=== PATIENT | female | born 2000 | race Caucasian/White ===

== ENCOUNTER 2020-01-20 16:34 | Emergency (ER) | payer OTHER ==
--- NOTE | 2020-01-20 19:02 | RAD REPORT ---
EXAM DESCRIPTION: US - Transvaginal Study Probe - 01/20/2020 6:43 pm CLINICAL HISTORY: ABD PAIN COMPARISON: No comparisons TECHNIQUE: Endovaginal sonography was performed. FINDINGS: Uterine size is normal. No myometrial mass. No suspicious mass, polyp or hematoma within t he endometrial cavity. No abnormal blood or fluid collection in the cul de sac. Right ovary is identi fied and normal in size. Normal for age small follicles are seen in the right ovary. No dominant andriy d or cystic right ovarian or right adnexal abnormality. Bowel obscures the left ovary. No left adnexal mass was identifiable. IMPRESSION: Uterus, right ovary and right adnexa show no suspicious findings. Nonvisualization of the left ovary due to prominent bowel. No left adnexal mass identified.
--- NOTE | 2020-01-20 19:06 | EDPHYS ---
Physician Documentation [facility] Name: Anum Barnett Age: 19 yrs Sex: Female : 2000 Arrival Date: 01/20/2020 Time: 16:36 Bed Waiting Private MD: ROSEANNE Physician Sam Cuadra HPI: 01/19 19:12 This 19 yrs old Female presents to ER via Ambulatory with complaints of Side kb Pain, Back Pain. 19:13 The patient complains of pain in the left flank and right flank. The pain radiates to kb the abdomen. Onset: The symptoms/episode began/occurred 2 week(s) ago. Modifying factors: The symptoms are alleviated by nothing. the symptoms are aggravated by nothing. Associated signs and symptoms: The patient has no apparent associated signs or symptoms. Severity of pain: At its worst the pain was moderate in the emergency department the pain is unchanged. The patient has not experienced similar symptoms in the past. The patient has been recently seen by a physician:. Pt reports she has had bilateral flank and abd pain for 2 weeks. Went to [place] when it first began, blood work was normal and CT showed ruptured ovarian cyst. Pain returned so she went to another ER, CT and labs were normal. Pain continues so she came to have it evaluated here. . SUIT MAKER: 17:11 LMP 01/19/2020 aa5 Historical: - Allergies: 17:02 No Known Allergies; aa5 - Home Meds: 17:02 Buspirone Oral [Active]; aa5 - PMHx: 17:02 Anxiety; aa5 - PSHx: 17:02 None; aa5 - Immunization history:: Adult Immunizations up to date. - Social history:: Smoking status: Patient denies any tobacco usage or history of. ROS: 19:12 Constitutional: Negative for fever, chills, and weight loss, Cardiovascular: Negative kb for chest pain, palpitations, and edema, Respiratory: Negative for shortness of breath, cough, wheezing, and pleuritic chest pain, : Negative for injury, bleeding, discharge, and swelling, MS/Extremity: Negative for injury and deformity, Skin: Negative for injury, rash, and discoloration, Neuro: Negative for headache, weakness, numbness, tingling, and seizure. 19:12 Abdomen/GI: Positive for abdominal pain, of the suprapubic area, Negative for nausea, vomiting, and diarrhea. 19:12 Back: Positive for flank pain, bilaterally. Exam: 19:12 Constitutional: This is a well developed, well nourished patient who is awake, alert, kb and in no acute distress. Head/Face: Normocephalic, atraumatic. Chest/axilla: Normal chest wall appearance and motion. Nontender with no deformity. No lesions are appreciated. Cardiovascular: Regular rate and rhythm with a normal S1 and S2. No gallops, murmurs, or rubs. Normal PMI, no JVD. No pulse deficits. Respiratory: Lungs have equal breath sounds bilaterally, clear to auscultation and percussion. No rales, rhonchi or wheezes noted. No increased work of breathing, no retractions or nasal flaring. Abdomen/GI: Soft, non-tender, with normal bowel sounds. No distension or tympany. No guarding or rebound. No evidence of tenderness throughout. Back: No spinal tenderness. No costovertebral tenderness. Full range of motion. Skin: Warm, dry with normal turgor. Normal color with no rashes, no lesions, and no evidence of cellulitis. MS/ Extremity: Pulses equal, no cyanosis. Neurovascular intact. Full, normal range of motion. Neuro: Awake and alert, GCS 15, oriented to person, place, time, and situation. Cranial nerves II-XII grossly intact. Motor strength 5/5 in all extremities. Sensory grossly intact. Cerebellar exam normal. Normal gait. Vital Signs: 17:02 BP 109 / 95; Pulse 80; Resp 16 S; Temp 98.0(TE); Pulse Ox 100% on R/A; aa5 MDM: 17:05 Patient medically screened. kb 19:01 Data reviewed: vital signs, nurses notes. Data interpreted: Pulse oximetry: on room air kb is 100 %. Interpretation: normal. Counseling: I had a detailed discussion with the patient and/or guardian regarding: the historical points, exam findings, and any diagnostic results supporting the discharge/admit diagnosis, lab results, radiology results, the need for outpatient follow up, an OB/Gyne specialist, to return to the emergency department if symptoms worsen or persist or if there are any questions or concerns that arise at home. 01/19 17:34 Order name: Urine Dipstick--Ancillary (enter results) 01/19 17:34 Order name: Urine --Ancillary (enter results) 01/19 17:06 Order name: Urine Test (obtain specimen) 01/19 17:06 Order name: Urine Dipstick-Ancillary (obtain specimen) 01/19 17:06 Order name: US Transvaginal Study (Probe); Complete Time: 19:04 kb Administered Medications: No medications were administered Disposition: 01/20 05:29 Co-signature as Attending Physician, Sam Cuadra MD I agree with the assessment and mal plan of care. Disposition: 01/20/20 19:06 Discharged to Home. Impression: Abdominal and pelvic pain. - Condition is Stable. - Discharge Instructions: Pelvic Pain, Female, [id number]. - Prescriptions for Ibuprofen 600 mg Oral Tablet - take 1 tablet by ORAL route every 6 hours As needed take with food; 30 tablet. - Medication Reconciliation Form, Thank You Letter, Antibiotic Education, Prescription Opioid Use form. - Follow up: Emergency Department; When: As needed; Reason: Worsening of condition. Follow up: Private Physician; When: 2 - 3 days; Reason: Recheck today's complaints, Continuance of care, Re-evaluation by your physician. Signatures: Dispatcher [employer] EDDalia Alvarenga, STRADDLE BUG OPERATOR-C STRADDLE BUG OPERATOR-Ckb Sam Cuadra MD MD cha Calderon, Audri, RN RN aa5 Corrections: (The following items were deleted from the chart) 01/19 19:17 19:06 01/20/2020 19:06 Discharged to Home. Impression: Abdominal and pelvic pain. aa5 Condition is Stable. Forms are Medication Reconciliation Form, Thank You Letter, Antibiotic Education, Prescription Opioid Use. Follow up: Emergency Department; When: As needed; Reason: Worsening of condition. Follow up: Private Physician; When: 2 - 3 days; Reason: Recheck today's complaints, Continuance of care, Re-evaluation by your physician. kb
--- NOTE | 2020-01-20 19:06 | ER ---
Nurse's Notes [facility] Name: Anum Barnett Age: 19 yrs Sex: Female : 2000 Arrival Date: 01/20/2020 Time: 16:36 Bed Waiting Private MD: Diagnosis: Abdominal and pelvic pain Presentation: 01/19 17:02 Chief complaint: Patient states: "I had a ruptured ovarian cyst a couple of weeks ago aa5 and I was seen here but I haven't been able to follow up with an Fence Repairman". Pt c/o soreness to xiao flanks. Pt states "my period was heavy this time and I had a clot that came out". Coronavirus screen: Client denies travel out of the [place] in the last 14 days. At this time, the client does not indicate any symptoms associated with coronavirus-19. Ebola Screen: Patient negative for fever greater than or equal to 101.5 degrees Fahrenheit, and additional compatible Ebola Virus Disease symptoms. Initial Sepsis Screen: Does the patient meet any 2 criteria? No. Patient's initial sepsis screen is negative. Does the patient have a suspected source of infection? No. Patient's initial sepsis screen is negative. Risk Assessment: Do you want to hurt yourself or someone else? Patient reports no desire to harm self or others. Onset of symptoms was January 2020. 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 - Social history:: Smoking status: Patient denies any tobacco usage or history of. Screenin:15 Abuse screen: Denies threats or abuse. Nutritional screening: No deficits noted. aa5 Tuberculosis screening: No symptoms or risk factors identified. Fall Risk None identified. Assessment: 17:15 General: Appears comfortable, Behavior is calm, cooperative. Pain: Complains of pain in aa5 abdomen and right flank and left flank Pain currently is 3 out of 10 on a pain scale. Quality of pain is described as sore Pain began 2 weeks ago. Neuro: Level of Consciousness is awake, alert, obeys commands, Oriented to person, place, time, situation. Cardiovascular: Heart tones S1 S2 present Rhythm is regular. Respiratory: Airway is patent Respiratory effort is even, unlabored, Respiratory pattern is regular, symmetrical. GI: Abdomen is flat, Bowel sounds present X 4 quads. Abd is soft and non tender X 4 quads. : Denies burning with urination, urinary frequency, urgency. EENT: No signs and/or symptoms were reported regarding the EENT system. Derm: Skin is pink, warm \\T\\ dry. Musculoskeletal: Range of motion: intact in all extremities. 19:00 Reassessment: INCREMENT MANAGER in triage with pt updating pt about urine and US results and POC to aa5 d/c home. Pt states she had [address] scans over the last 2 weeks in other ERs without significant findings. . 19:15 Reassessment: Patient is alert, oriented x 3, equal unlabored respirations, skin aa5 warm/dry/pink. Vital Signs: 17:02 BP 109 / 95; Pulse 80; Resp 16 S; Temp 98.0(TE); Pulse Ox 100% on R/A; aa5 ED Course: 16:36 Patient arrived in ED. ds1 17:01 Arm band placed on. aa5 17:01 Patient has correct armband on for positive identification. aa5 17:04 Triage completed. aa5 17:05 Dalia Medeiros FNP-C is [facility]. kb 17:05 Sam Cuadra MD is Attending Physician. kb 18:44 US Transvaginal Study (Probe) In Process Unspecified. EDMS 19:15 No provider procedures requiring assistance completed. Patient did not have IV access aa5 during this emergency room visit. Administered Medications: No medications were administered Outcome: 19:06 Discharge ordered by . kb 19:15 Discharged to home ambulatory. aa5 19:15 Condition: stable 19:15 Discharge instructions given to patient, Instructed on discharge instructions, follow up and referral plans. medication usage, Demonstrated understanding of instructions, follow-up care, medications, Prescriptions given X 1. 19:17 Patient left the ED. aa5 Signatures: Dispatcher [employer] EDSC Dalia Medeiros FNP-C FNP-Ckb Sanford, Demi ds1 Brenda Haley RN RN aa5 Corrections: (The following items were deleted from the chart) 19:25 19:05 Reassessment: INCREMENT MANAGER in triage with pt updating pt about urine and US results and POC aa5 to d/c home. Pt states she had [address] scans over the last 2 weeks in other ERs without significant findings. . aa5
[2020-01-20 20:11] VITALS: BP 109/95; TEMP 98; O2SAT 100
[2020-01-20 20:49] LABS: Urine Blood NEGATIVE (NEG); Urine Glucose NEGATIVE (NEG); Urine Protein NEGATIVE (NEG); Urine Specific Gravity 1.015 (1.005-1.030)
== END 2020-01-20 19:17 | disposition home or self-care (01) ==
LOC: ER 16:34
DX: R10.2 Pelvic and perineal pain (principal); F41.9 Anxiety disorder, unspecified
CPT/HCPCS: 76830; 81003; 81025; 99283

== ENCOUNTER 2020-01-22 17:25 | Emergency (ER) | payer OTHER ==
--- OUTSIDE RECORDS SUMMARY | 2020-01-22 17:28 | XMS REPORT | Continuity of Care Document ---
:2000 Author Organization [facility] t Address [address] [place] [address] Care Team Providers Name Role Phone Unavailable Unavailable Unavailable Payers Payer Name Policy Type Policy Number Effective Date Expiration Date S ource Problems This patient has no known problems. Allergies, Adverse Reactions, Alerts Allergy Allergy Status Severity Reaction(s) Onset Inactive Treating Comm ents Source Name Type Date Date Clinician No Known DA Active U 2019-03 [facility] Allergie 03-13 [facility] Medications This patient has no known medications. Procedures This patient has no known procedures. Results Test Description Test Time Test Comments Results Result [facility] e Comments - CTA CHEST FOR PE 2020-01-12 15:36:00 [facility] : 2000 Sex: F Name: OLE CAMEJO Juan ED : 2000 Age/S: 19 / F [address] Unit #: [id number] Loc: [place] [address] Phys: Lm Monsivais MD Acct: [id number] Dis Date: Status: REG ER PHONE #: Exam Date: 01/12/2020 9113 FAX #: Reason: cp/sob elevated ddimer EXAMS: CPT CODE: [id number] [place] 75358 - CTA CHEST FOR PE CLINICAL HISTORY: Chest pain with shortness of breath. Elevated d-dimer. COMPARISON: None TECHNIQUE: CT angiography of the chest was performed both before and after intravenous contrast administration. The study was performed using angiographic technique with maximum intensity projection reconstruction images. Patient was given 80 ml of Isovue through intravenous route. This CT exam was performed using one or more of the following dose reduction techniques: Automated exposure control; Adjustment of the mA and/or kV according to patient size; Use of iterative reconstruction technique. FINDINGS: Lungs are slightly hyperexpanded without pneumothorax, effusion or focal alveolar consolidation. Heart size is normal. There is no pericardial effusion. No significant mediastinal, hilar or axillary adenopathy. Residual thymus is noted within the anterior mediastinum. There is no evidence of pulmonary embolus. The thoracic aorta appears normal in caliber throughout its course. No definite acute bony abnormality. Visualized portions of the upper abdomen are grossly unremarkable. IMPRESSION: No evidence of pulmonary embolus. Mildly hyperexpanded lungs without consolidation or effusion. Other findings described above. at 1536 Reported and signed by: Cherise Elizabeth MD CC: Lm Monsivais MD Technologist:Yun [facility] CT(R) RT CTDI: 4.02 DLP: 159.79 Trnscb Date/Time: 01/12/2020 (1536) t.[email or web address] Orig Print D/T: S: 01/12/2020 (1539) PAGE 1 Signed Report DRUGS OF ABUSE SCREEN 2020-01-12 13:54:00 Test Item Value Reference Range Interpretation Comme nts UR COCAINE (test code = COCAU) NEGATIVE ng/ml NEGATIVE UR CANNABINOIDS (test code = NEGATIVE ng/ml NEGATIVE CANU) UR AMPHETAMINE (test code = NEGATIVE ng/dl NEGATIVE AMPHU) UR BARBITURATE (test code = NEGATIVE ng/ml NEGATIVE BARBU) UR BENZODIAZEPINE (test code = NEGATIVE ng/ml NEGATIVE BENZU) UR OPIATES QUAL (test code = NEGATIVE ng/ml NEGATIVE OPIAQLU) UR PHENCYCLIDINE (PCP) (test NEGATIVE ng/ml NEGATIVE THE URINE SPECIMEN WAS code = PHENCU) TESTED AT THE LISTED CUTOFFS DRUG CLASS INITIAL TEST LEVEL AMPHETAMI MIKE 1000 NG/MLBARBI TURATES 200 NG/MLBE NZODIAZEPINES 200 NG/M LCOCAINE METABOLITE 300 NG/MLMARIJUANA METABOLITE 50 NG/MLOPIATES 300 NG/MLPHEN CYCLIDINE 25 NG/ML UR HCG [id number] 13:46:00 Test Item Value Reference Range Interpretation Comments UR HCG QUAL (test code = HCGQLU) NEGATIVE NEGATIVE B-TYPE NATRIURETIC [id number] 13:15:00 Test Item Value Reference Range Interpretation Comments B-TYPE NATRIURETIC PEPTIDE (test 10 PG/ML 13-100 L code = BNP) D-DIMER [id number] 13:11:00 Test Item Value Reference Range Interpretation Comments D-DIMER QUANT 0.68 mg/L FEU <0.59 H "D-DIMER CUT OFF OF 0.50 (test code = mg/L (FEU) IS U SEFUL TO DDIMER) EXCLUDE DXOF DVT/PEExpected value(RI) is less than 0. 59mg/L (FEU) for cliff lhealthy subjects."Miquel montejo note: Results of D-di celestine assays should a lways beinterpreted i n conjunction wit h the patient's medicalhistory, clinical presentation/pr obability and otherfindin gs. LAB ANTICOAGULANT QUERY NO- XR CHEST 1 [id number] 13:05:00 [facility] 2000 Sex: F FAX: Koza,Lm M MD [phone] [place]: St: PRE Name: OLE CAMEJO [place] FSED : 2000 Age/S: 19/F [address] Unit #: [id number] Loc: [place] [address] Phys: Lm Monsivais MD Acct: [id number] Dis Date:Status: PRE ER PHONE #: Exam Date: 01/12/2020 3776 FAX #: Reason: chest pain EXAMS: CPT CODE: [id number] XR CHEST 1 V 06145 Site ID: [id number] HISTORY: Chest pain FINDINGS: The lungs are clear and normally expanded. The heart and pulmonary vasculature is normal. Osseous structures are unremarkable. IMPRESSION: Negative chest X-ray. at 1303 Reported and signed by: ORQUIDEA MALDONADO M.D. CC: Lm Monsivais MD Technologist: Dhara Cummings CT(R)RT Trnscrd Date/Time/By: 01/12/2020 (2712) : By: [email or web address] Orig Print D/T: S: 01/12/2020 (7118) PAGE 1 Signed ReportBASIC METABOLIC [id number] 12:56:00 Test Item Value Reference Range Interpretation Comments SODIUM (test code = 137 mmol/L 136-145 N NA) POTASSIUM (test code = 3.5 mmol/L 3.5-5.1 N K) CHLORIDE (test code = 103 mmol/L 98-107 N CL) CARBON DIOXIDE (test 23 mmol/L 21-32 N code = CO2) GLUCOSE (test code = 91 mg/dL 70-100 N GLU) BLOOD UREA NITROGEN 7 mg/dL 7-18 N (test code = BUN) GLOMERULAR FILTRATION > 60.00 >=60 Report ing units: RATE (test code = GFR) mL/mi n/1.73m\\S\\2 (Modified MDRD formula)REFEREN CE RANGE: > or = 6 0 ml/min/1.73M2IF PATIENT IS -EB N, MULTIPLY REPORT ED RESULT BY1.21. CREATININE (test code 0.59 mg/dl 0.55-1.02 N = CREAT) CALCIUM (test code = 9.5 mg/dL 8.5-10.1 N CA) LIVER [id number] 12:56:00 Test Item Value Reference Range Interpretation Comments TOTAL PROTEIN (test code = PROT) 8.1 g/dl 6.4-8.2 N ALBUMIN (test code = ALB) 4.5 g/dl 3.4-5.0 N BILIRUBIN TOTAL (test code = BILT) 0.4 mg/dL 0.2-1.0 N BILIRUBIN DIRECT (test code = 0.12 mg/dl 0.0-0.2 N BILD) SGOT/AST (test code = AST) 12 U/L 15-37 L SGPT/ALT (test code = ALT) 3 U/L 12-78 L ALKALINE PHOSPHATASE TOTAL (test 65 U/L 45-117 N code = ALKP) [id number] 12:56:00 Test Item Value Reference Range Interpretation Comments LIPASE (test code = LIP) 92 U/L 73-393 N [id number] 12:56:00 Test Item Value Reference Range Interpretation Comments TROPONIN-I (test <0.017 ng/ml 0.00-0.045 N GUIDELINES: 0.08 - 0.09 code = TROPI) Indeterminate0 .10 Risk Stratifica tion Limit: Suggest sequential te sting0.60 - 1.50 AMI cut off: Myocardial Inju ry by WHO criteria BASIC METABOLIC [id number] 12:53:00 Test Item Value Reference Range Interpretation Comments SODIUM (test code = 137 mmol/L 136-145 N NA) POTASSIUM (test code = 3.5 mmol/L 3.5-5.1 N K) CHLORIDE (test code = 103 mmol/L 98-107 N CL) CARBON DIOXIDE (test 23 mmol/L 21-32 N code = CO2) GLUCOSE (test code = 91 mg/dL 70-100 N GLU) BLOOD UREA NITROGEN 7 mg/dL 7-18 N (test code = BUN) GLOMERULAR FILTRATION > 60.00 >=60 Report ing units: RATE (test code = GFR) mL/mi n/1.73m\\S\\2 (Modified MDRD formula)REFEREN CE RANGE: > or = 6 0 ml/min/1.73M2IF PATIENT IS -EB N, MULTIPLY REPORT ED RESULT BY1.21. CREATININE (test code 0.59 mg/dl 0.55-1.02 N = CREAT) CALCIUM (test code = 9.5 mg/dL 8.5-10.1 N CA) LIVER [id number] 12:53:00 Test Item Value Reference Range Interpretation Comments TOTAL PROTEIN (test code = PROT) 8.1 g/dl 6.4-8.2 N ALBUMIN (test code = ALB) 4.5 g/dl 3.4-5.0 N BILIRUBIN TOTAL (test code = BILT) 0.4 mg/dL 0.2-1.0 N BILIRUBIN DIRECT (test code = BILD) mg/dl 0.0-0.2 SGOT/AST (test code = AST) 12 U/L 15-37 L SGPT/ALT (test code = ALT) 3 U/L 12-78 L ALKALINE PHOSPHATASE TOTAL (test 65 U/L 45-117 N code = ALKP) [id number] 12:53:00 Test Item Value Reference Range Interpretation Comments LIPASE (test code = LIP) U/L 73-393 [id number] 12:53:00 Test Item Value Reference Range Interpretation Comments TROPONIN-I (test code = TROPI) ng/ml 0.00-0.045 BASIC METABOLIC [id number] 12:50:00 Test Item Value Reference Range Interpretation Comments SODIUM (test code = 137 mmol/L 136-145 N NA) POTASSIUM (test code = 3.5 mmol/L 3.5-5.1 N K) CHLORIDE (test code = 103 mmol/L 98-107 N CL) CARBON DIOXIDE (test 23 mmol/L 21-32 N code = CO2) GLUCOSE (test code = 91 mg/dL 70-100 N GLU) BLOOD UREA NITROGEN 7 mg/dL 7-18 N (test code = BUN) GLOMERULAR FILTRATION > 60.00 >=60 Report ing units: RATE (test code = GFR) mL/mi n/1.73m\\S\\2 (Modified MDRD formula)REFEREN CE RANGE: > or = 6 0 ml/min/1.73M2IF PATIENT IS -EB N, MULTIPLY REPORT ED RESULT BY1.21. CREATININE (test code 0.59 mg/dl 0.55-1.02 N = CREAT) CALCIUM (test code = mg/dL 8.5-10.1 CA) LIVER [id number] 12:50:00 Test Item Value Reference Range Interpretation Comments TOTAL PROTEIN (test code = PROT) g/dl 6.4-8.2 ALBUMIN (test code = ALB) g/dl 3.4-5.0 BILIRUBIN TOTAL (test code = BILT) mg/dL 0.2-1.0 BILIRUBIN DIRECT (test code = BILD) mg/dl 0.0-0.2 SGOT/AST (test code = AST) U/L 15-37 SGPT/ALT (test code = ALT) U/L 12-78 ALKALINE PHOSPHATASE TOTAL (test code U/L 45-117 = ALKP) [id number] 12:50:00 Test Item Value Reference Range Interpretation Comments LIPASE (test code = LIP) U/L 73-393 [id number] 12:50:00 Test Item Value Reference Range Interpretation Comments TROPONIN-I (test code = TROPI) ng/ml 0.00-0.045 CBC W/AUTO [id number] 12:44:00 Test Item Value Reference Range Interpretation Comments WHITE BLOOD CELL (test code = 8.1 X10(3) 4.5-11.0 N WBC) RED BLOOD CELL (test code = 4.32 X10(6) 4.2-5.4 N RBC) HEMOGLOBIN (test code = HGB) 13.1 g/dL 12.5-16.0 N HEMATOCRIT (test code = HCT) 40.6 % 37.0-47.0 N MEAN CELL VOLUME (test code = 94.0 fL 78-100 N MCV) MEAN CELL HGB (test code = MCH) 30.3 pg 26.0-34.0 N MEAN CELL HGB CONCETRATION 32.3 g/dl 30.0-37.0 N (test code = MCHC) RED CELL DISTRIBUTION WIDTH 11.9 % 11.5-14.5 N (test code = RDW) PLATELET COUNT (test code = 244 X10(3) 150-350 N PLT) MEAN PLATELET VOLUME (test code 10.6 fl 8.7-11.4 N = MPV) NEUTROPHIL % (test code = NT%) 60.5 % 36.0-66.0 N IMMATURE GRANULOCYTE % (test 0.1 % 0.0-2.0 N code = IG%) LYMPHOCYTE % (test code = LY%) 31.6 % 16-50 N MONOCYTE % (test code = MO%) 6.8 % 0.0-13.0 N EOSINOPHIL % (test code = EO%) 0.5 % 0.0-4.5 N BASOPHIL % (test code = BA%) 0.5 % 0.0-1.5 N NEUTROPHIL # (test code = NT#) 4.9 X10(3) 1.7-7.7 N IMMATURE GRANULOCYTE # (test 0.01 X10(3)uL 0.00-0.03 N code = IG#) LYMPHOCYTE # (test code = LY#) 2.6 X10(3) 1.0-4.8 N MONOCYTE # (test code = MO#) 0.6 X10(3) 0.0-0.89 N EOSINOPHIL # (test code = EO#) 0.0 X10(3) 0.0-0.6 N BASOPHIL # (test code = BA#) 0.0 X10(3) 0.0-0.2 N RBC MORPHOLOGY REQUIRED (test NO NORMAL code = RBCM)
[2020-01-22] MEDS ORDERED: FAMOTIDINE 20 MG/2 ML VIAL IV ONE (19:18)
[2020-01-22 19:20] LABS: Absolute Lymphocytes (CBC) 3.2 K/uL (0.7-4.9); Basophils % 0.5 % (0-1.3); Hematocrit 37.7 % (36.0-45.0); Lymphocytes % 38.1 % (15.3-44.8); MPV 9.1 fL (7.6-11.3); RBC Red Blood Cell Count 4.12 M/uL (3.86-4.86)
[2020-01-22 19:37] LABS: ALT/SGPT 15 U/L (12-78); AST/SGOT 9 U/L (15-37); Albumin 4.4 g/dL (3.4-5.0); Alkaline Phosphatase 74 U/L (45-117); BUN Blood Urea Nitrogen 9 mg/dL (7-18); Bicarbonate 28 mmol/L (21-32); Bilirubin Direct < 0.1 mg/dL (0-0.2); Bilirubin Total 0.3 mg/dL (0.2-1.0); Glucose Level 77 mg/dL (74-106); Lipase 116 U/L (73-393); Potassium 3.9 mmol/L (3.5-5.1); Protein, Total 8.2 g/dL (6.4-8.2); Sodium Level 140 mmol/L (136-145)
[2020-01-22 20:10] LABS: Urine Blood NEGATIVE (NEG); Urine Glucose NEGATIVE (NEG); Urine Protein NEGATIVE (NEG); Urine Specific Gravity 1.015 (1.005-1.030); Urine pH 7.5 (5.0-7.0)
[2020-01-22 20:14] LABS: Urine Bacteria 20-50 /HPF (<20); Urine Culture Reflex Order REFLEXED; Urine RBC <5 /HPF (NONE SEEN)
--- NOTE | 2020-01-22 21:13 | ER ---
Nurse's Notes [facility] Name: Anum Barnett Age: 19 yrs Sex: Female : 2000 Arrival Date: 01/22/2020 Time: 17:27 Bed 8 Private MD: Diagnosis: Unspecified abdominal pain;Conjunctivitis-Right Eye Presentation: 01/21 17:31 Chief complaint: Patient states: "accouple of days ago I was here and they checked for jd3 ovarian cyst, but today my sides have been hurting, with a lot of burping which is abnormal.". Coronavirus screen: At this time, the client does not indicate any symptoms associated with coronavirus-19. Ebola Screen: Patient negative for fever greater than or equal to 101.5 degrees Fahrenheit, and additional compatible Ebola Virus Disease symptoms. Initial Sepsis Screen: Does the patient meet any 2 criteria? No. Patient's initial sepsis screen is negative. Does the patient have a suspected source of infection? No. Patient's initial sepsis screen is negative. Risk Assessment: Do you want to hurt yourself or someone else? Patient reports no desire to harm self or others. Onset of symptoms was January 18, 2020. 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 - Social history:: Smoking status: Patient denies any tobacco usage or history of. Screenin:54 Abuse screen: Denies threats or abuse. Nutritional screening: No deficits noted. em Tuberculosis screening: No symptoms or risk factors identified. Fall Risk None identified. Assessment: 19:10 General: Appears in no apparent distress. Behavior is appropriate for age. Pain: ea Complains of pain in left low back and right low back. Neuro: Level of Consciousness is awake, alert, obeys commands, Oriented to person, place, time. Cardiovascular: Patient's skin is warm and dry. Respiratory: Airway is patent Respiratory effort is even, unlabored, Respiratory pattern is regular, symmetrical. GI: Abdomen is non-distended. Derm: Skin is dry, Skin is pale, Skin temperature is warm. 20:26 Reassessment: Patient appears in no apparent distress at this time. Patient and/or mg2 family updated on plan of care and expected duration. Pain level reassessed. Patient is alert, oriented x 3, equal unlabored respirations, skin warm/dry/pink. 21:26 Reassessment: Patient and/or family updated on plan of care and expected duration. Pain ea level reassessed. Patient is alert, oriented x 3, equal unlabored respirations, skin warm/dry/pink. Discharge instruction given to patient, verbalized the understanding of instruction. Pt left ED ambulatory tolerating well. Vital Signs: 17:33 BP 114 / 83; Pulse 83; Resp 15 S; Temp 97.7(TE); Pulse Ox 99% on R/A; Weight 50.35 kg jd3 (R); Height 5 ft. 3 in. (160.02 cm) (R); Pain 8/10; 19:47 BP 117 / 67; Pulse 73; Resp 16; Pulse Ox 98% ; ea 20:26 BP 112 / 79; Pulse 79; Resp 18; Pulse Ox 100% on R/A; mg2 21:15 BP 111 / 68; Pulse 78; Resp 16; Temp 97.7; Pulse Ox 98% ; ea 17:33 Body Mass Index 19.66 (50.35 kg, 160.02 cm) jd3 ED Course: 17:27 Patient arrived in ED. ag5 17:33 Triage completed. jd3 17:35 Arm band placed on. jd3 18:37 Sam Munoz PA is PHCP. cp 18:37 Sam Cuadra MD is Attending Physician. cp 18:53 Nick Barroso, RN is Primary Nurse. em 18:54 Patient has correct armband on for positive identification. Bed in low position. Call em light in reach. 19:10 Inserted saline lock: 20 gauge in left antecubital area, using aseptic technique. Blood ea collected. 19:12 Primary Nurse role handed off by Nick Barroso, RN sg 19:22 Gretchen Powell, RN is Primary Nurse. ea 20:35 US Abdomen Limited: RUQ abdomen In Process Unspecified. EDMS 20:41 XRAY Abdomen Acute Series In Process Unspecified. EDMS 21:12 William Baca MD is Referral Physician. cp 21:28 No provider procedures requiring assistance completed. IV discontinued, intact, ea bleeding controlled, No redness/swelling at site. Pressure dressing applied. Administered Medications: 19:10 Drug: Pepcid 20 mg Route: IVP; Site: left antecubital; ea 20:40 Follow up: Response: No adverse reaction mg2 Outcome: 21:13 Discharge ordered by MD. cp 21:28 Discharged to home ambulatory. ea 21:28 Condition: stable 21:28 Discharge instructions given to patient, Instructed on discharge instructions, follow up and referral plans. medication usage, Demonstrated understanding of instructions, follow-up care, medications, Prescriptions given X 3. 21:29 Patient left the ED. ea Signatures: Dispatcher [employer] EDMS Gamaliel Soliz, RN RN Nick Hilario RN RN Sam Stark PA PA cp Antunez, Elena, RN RN ea Davies, Jonathon, RN RN jEdvin Monae RN RN mg2 Gaskin, Ajare ag5 Corrections: (The following items were deleted from the chart) 21:29 21:29 BP 111 / 68; Pulse 78bpm; Resp 16bpm; Pulse Ox 98%; Temp 97.7F; finn briseno 21:30 20:15 BP 111 / 68; Pulse 78bpm; Resp 16bpm; Pulse Ox 98%; Temp 97.7F; ea ea
--- NOTE | 2020-01-22 21:14 | EDPHYS ---
Physician Documentation [facility] Name: Anum Barnett Age: 19 yrs Sex: Female : 2000 Arrival Date: 01/22/2020 Time: 17:27 Bed 8 Private MD: ED Physician Sam Cuadra HPI: 01/21 19:00 This 19 yrs old Female presents to ER via Ambulatory with complaints of cp Abdominal Pain, Redness of Eye. 19:00 The patient presents with abdominal pain in the epigastric area, in the lower abdomen, cp in the right upper quadrant, in the left upper quadrant, that is diffuse, bilateral lateral abdomen. Onset: The symptoms/episode began/occurred today. The symptoms radiate to back, epigastric area. Associated signs and symptoms: Pertinent negatives: nausea and vomiting, anorexia, chest pain, constipation, diarrhea, dysuria, fever. The symptoms are described as sharp, intermittent. Modifying factors: the symptoms are aggravated by movement, walking. 19:00 The patient has been recently seen at the [facility] Emergency cp Department, for similar complaints diagnosed with ovarian cyst, 2 days ago. DIALER: 17:33 LMP 01/14/2020 jd3 Historical: - Allergies: 17:33 No Known Allergies; jd3 - Home Meds: 17:33 Buspirone Oral [Active]; jd3 - PMHx: 17:33 Anxiety; jd3 - PSHx: 17:33 None; jd3 - Immunization history:: Adult Immunizations up to date. - Social history:: Smoking status: Patient denies any tobacco usage or history of. ROS: 19:05 Constitutional: Negative for body aches, chills, fever, poor PO intake. cp 19:05 Eyes: Positive for redness, of the right eye, Negative for discharge, pain. cp 19:05 ENT: Negative for ear pain, sore throat. 19:05 Cardiovascular: Negative for chest pain, edema, palpitations. 19:05 Respiratory: Negative for cough, shortness of breath, wheezing. 19:05 Abdomen/GI: Positive for abdominal pain, Negative for nausea, vomiting, and diarrhea. 19:05 Skin: Negative for cellulitis, rash. 19:05 Neuro: Negative for altered mental status, headache, weakness. 19:05 All other systems are negative. Exam: 19:10 Constitutional: The patient appears in no acute distress, alert, awake, non-toxic, well cp developed, well nourished. 19:10 Head/Face: Normocephalic, atraumatic. cp 19:10 Eyes: Periorbital structures: appear normal, Pupils: equal, round, and reactive to light and accomodation, Extraocular movements: intact throughout, Conjunctiva: mild erythema noted right conjunctiva. Lids and lashes: appear normal, bilaterally. 19:10 ENT: External ear(s): are unremarkable, Nose: is normal, Mouth: Lips: moist, Oral mucosa: moist, Posterior pharynx: Airway: no evidence of obstruction, patent, swelling, is not appreciated, erythema, is not appreciated, exudate, is not appreciated. 19:10 Neck: ROM/movement: is normal, is supple, without pain, no range of motions limitations. 19:10 Chest/axilla: Inspection: normal, Palpation: is normal, no crepitus, no tenderness. 19:10 Cardiovascular: Rate: normal, Rhythm: regular. 19:10 Respiratory: the patient does not display signs of respiratory distress, Respirations: normal, no use of accessory muscles, no retractions, labored breathing, is not present, Breath sounds: are clear throughout, no decreased breath sounds, no stridor, no wheezing. 19:10 Abdomen/GI: Inspection: abdomen appears normal, Bowel sounds: active, all quadrants, Palpation: abdomen is soft and non-tender, in all quadrants. 19:10 Back: CVA tenderness, is absent. 19:10 Skin: cellulitis, is not appreciated, no rash present. Vital Signs: 17:33 BP 114 / 83; Pulse 83; Resp 15 S; Temp 97.7(TE); Pulse Ox 99% on R/A; Weight 50.35 kg jd3 (R); Height 5 ft. 3 in. (160.02 cm) (R); Pain 8/10; 19:47 BP 117 / 67; Pulse 73; Resp 16; Pulse Ox 98% ; ea 20:26 BP 112 / 79; Pulse 79; Resp 18; Pulse Ox 100% on R/A; mg2 21:15 BP 111 / 68; Pulse 78; Resp 16; Temp 97.7; Pulse Ox 98% ; ea 17:33 Body Mass Index 19.66 (50.35 kg, 160.02 cm) jd3 MDM: 18:44 Patient medically screened. cp 20:48 ED course: received phone report of US abdomen that was negative for acute findings. cp 21:12 Data reviewed: vital signs, nurses notes, lab test result(s), radiologic studies, plain cp films, ultrasound, and as a result, I will discharge patient. 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 Special discussion: Based on the patient's Hx, exam, and Dx evaluation, there is no indication for emergent surgery or inpatient Tx. It is understood by the patient/guardian that if the Sx's persist or worsen they need to return immediately for re-evaluation. 01/21 18:46 Order name: Basic Metabolic Panel; Complete Time: 19:43 01/21 18:46 Order name: CBC with Diff; Complete Time: 19:43 01/21 18:46 Order name: Hepatic Function; Complete Time: 19:43 01/21 19:43 Interpretation: Normal except: AST 9; GLOB 3.8. 01/21 18:46 Order name: Lipase; Complete Time: 19:43 01/21 18:46 Order name: Urine Microscopic Only; Complete Time: 20:49 01/21 20:49 Interpretation: Normal except: UWBC 5-10; UBACT 20-50; SQEPI 5-10. 01/21 19:07 Order name: Urine --Ancillary (enter results); Complete Time: 20:49 tt3 01/21 18:46 Order name: IV Saline Lock; Complete Time: 19:24 01/21 18:46 Order name: Labs collected and sent; Complete Time: 19:24 01/21 18:46 Order name: Urine Dipstick-Ancillary (obtain specimen); Complete Time: 18:53 01/21 19:07 Order name: Urine Dipstick--Ancillary (enter results); Complete Time: 20:49 tt3 01/21 20:49 Interpretation: Normal except: UPH 7.5. 01/21 19:44 Order name: XRAY Abdomen Acute Series 01/21 19:44 Order name: US Abdomen Limited: RUQ abdomen 01/21 20:16 Order name: Urine Culture [facility] 01/21 18:46 Order name: Urine Test (obtain specimen); Complete Time: 18:54 cp Administered Medications: 19:10 Drug: Pepcid 20 mg Route: IVP; Site: left antecubital; ea 20:40 Follow up: Response: No adverse reaction mg2 Disposition: 21:25 Chart complete. 01/22 08:18 Co-signature as Attending Physician, Sam Cuadra MD I agree with the assessment and [facility] plan of care. Disposition: 01/22/20 21:13 Discharged to Home. Impression: Unspecified abdominal pain, Conjunctivitis - Right Eye. - Condition is Stable. - Discharge Instructions: Abdominal Pain, Adult, Bacterial Conjunctivitis. - Prescriptions for Bentyl 20 mg Oral Tablet - take 2 tablet by ORAL route every 6 hours As needed; 40 tablet. Zofran 4 mg Oral Tablet - take 1 tablet by ORAL route every 12 hours As needed; 20 tablet. Polytrim 10,000 unit- 1 mg/mL Ophthalmic drops - instill 1 drop by OPHTHALMIC route every 6 hours for 7 days instill drops in right eye as directed; 1 bottle. - Medication Reconciliation Form, Thank You Letter, Antibiotic Education, Prescription Opioid Use form. - Follow up: William Baca MD; When: 2 - 3 days; Reason: Recheck today's complaints. - Problem is an ongoing problem. - Symptoms have improved. Signatures: Dispatcher [employer] [facility] Sam Cuadra MD MD cha Page, Corey, PA PA cp Antunez, Elena, RN RN Gamal Barbosa RN RN Edvin Xiong RN mg2 Corrections: (The following items were deleted from the chart) 01/21 21:17 21:13 01/22/2020 21:13 Discharged to Home. Impression: Unspecified abdominal pain. cp Condition is Stable. Forms are Medication Reconciliation Form, Thank You Letter, Antibiotic Education, Prescription Opioid Use. Follow up: William Baca; When: 2 - 3 days; Reason: Recheck today's complaints. Problem is an ongoing problem. Symptoms have improved. cp 21:29 21:17 01/22/2020 21:13 Discharged to Home. Impression: Unspecified abdominal pain; ea Conjunctivitis - Right Eye. Condition is Stable. Discharge Instructions: Abdominal Pain, Adult. Prescriptions for Bentyl 20 mg Oral Tablet - take 2 tablet by ORAL route every 6 hours As needed; 40 tablet, Zofran 4 mg Oral Tablet - take 1 tablet by ORAL route every 12 hours As needed; 20 tablet, Polytrim 10,000 unit- 1 mg/mL Ophthalmic drops - instill 1 drop by OPHTHALMIC route every 6 hours for 7 days instill drops in right eye as directed; 1 bottle. and Forms are Medication Reconciliation Form, Thank You Letter, Antibiotic Education, Prescription Opioid Use. Follow up: William Baca; When: 2 - 3 days; Reason: Recheck today's complaints. Problem is an ongoing problem. Symptoms have improved. 01/22 18:06 01/21 19:00 The patient has been recently seen at the [facility] Emergency Department, for similar complaints diagnosed with ovarian cyst, cp
--- NOTE | 2020-01-22 22:05 | RAD REPORT ---
EXAM DESCRIPTION: US - Abdomen Exam Limited - 01/22/2020 8:35 pm CLINICAL HISTORY: ABD PAIN COMPARISON: <Comparisons> FINDINGS: The gallbladder demonstrates no gallstones. No pericholecystic fluid or gallbladder wall t hickening. The common bile duct is normal measuring 2 mm. The liver demonstrates no findings of intrahepatic biliary dilatation. IMPRESSION: Unremarkable examination.
--- NOTE | 2020-01-22 22:06 | RAD REPORT ---
EXAM DESCRIPTION: RAD - Abdomen Acute Series - 01/22/2020 8:45 pm CLINICAL HISTORY: ABD PAIN COMPARISON: No comparisons FINDINGS: The lungs are clear. The heart is normal in size. No subdiaphragmatic free air. The bowel gas pattern is nonobstructive. No pathologic calcifications seen. No pathologic bone lesion . IMPRESSION: Unremarkable study.
[2020-01-23 01:18] VITALS: TEMP 97.7
[2020-01-23 01:26] VITALS: BP 111/68; O2SAT 98
== END 2020-01-22 21:29 | disposition home or self-care (01) ==
LOC: ER 17:25
DX: R10.9 Unspecified abdominal pain (principal); H10.9 Unspecified conjunctivitis; F41.9 Anxiety disorder, unspecified
CPT/HCPCS: 36415; 74022; 76705; 80048; 80076; 81003; 81015; 81025; 83690; 85025; 87086; 87088; 96374; 99284